=== PATIENT | female | born 2005 | race Two or more races ===

== ENCOUNTER 2025-04-06 09:43 | Emergency (ER) | payer MEDICAID, SELFPAY ==
--- NOTE | 2025-04-06 | XR_ITS ---
Exam: MRI knee without contrast, left Date and time of exam: April 06, 2025, 1558 hrs. Indications: Patient fell off of the knee 2 weeks ago followed by pain and swelling, unable to Weight on the Technique: Multiple axial, coronal, and sagittal sections on the knee have been obtained. T2-Weighted sagittal, fat-suppressed images, TR 3,500, TE 62, T2 weighted coronal fat-saturated images, TR 3,500, TE 62 Proton density sagittal sections, TR 1800, TE 31. T-1 weighted coronal images, TR 524, TE 13.0 Findings: Medial meniscus anterior horn intact. Medial meniscus, body intact.. Posterior horn medial meniscus intact.. Lateral meniscus anterior horn is intact Lateral meniscus, body is intact Posterior horn lateral meniscus is intact Anterior cruciate ligament complete tear Posterior cruciate ligament appears intact. Knee effusion is large. Quadriceps and patellar tendons appear intact. There is no evidence of tendinosis. Inflammatory change or fracture of Hoffa's fat pad is not seen. Medial patellar facet demonstrates no thinning. Lateral patellar facet cartilage demonstrates no thinning. Trochlear cartilage demonstrates no thinning. Marrow signal abnormal, bone contusion medial and lateral femoral condyle, posterior proximal medial lateral tibia. Medial collateral ligament appears intact. No meniscocapsular separation is seen. Illiotibial band and fibular collateral ligament are intact. Biceps femoris tendons appear intact. Medial femoral condylar articular cartilage demonstrates no thinning. Lateral femoral condylar articular cartilage demonstratesno thinning. Tibial plateau cartilage demonstrates no thinning. Impression: Complete tear anterior cruciate ligament
[2025-04-06 10:22] VITALS: BP 110/65; PULSE 55; RESP 16; TEMP 37.2; O2SAT 98; BMI 23.0
--- NOTE | 2025-04-06 14:57 | PC.NURSE ---
MRI CALLED TO ASK ABOUT IUD, PT GOT IT PLACED IN 2020, AND PER PT HAS HAD AN MRI WITH IT IN WITH NO PROBLEM
--- NOTE | 2025-04-06 16:36 | EDNOTE_ITS ---
<Statement entered by Courtney Davila MD - 04/16/25 11:09> As co-signing physician, I was present and available for consult prn. I concur with the plan and care as documented by the midlevel provider. Lower Extremity Injury RME/HPI General Chief Complaint: Extremity Injury, Lower Stated Complaint: TORN ACL Time Seen by Provider: 04/06/25 09:51 Arrival date/time: 04/06/25 09:43 20-year-old female with no significant medical problems presents to the emergency department today with complaints of left knee pain patient reports she was playing soccer on the of last month and she twisted her left knee when doing so she developed pain and swelling immediately patient reports since then she has been unable to walk without difficulty patient reports that she saw her medical management trainer at school and they feel that she has an ACL tear Limitations: no limitations Related Data Allergies Allergy/AdvReac Type Severity Reaction Status Date / Time No Known Allergies Allergy Verified 04/06/25 09:45 Review of Systems Review of Systems Systems Reviewed: All systems reviewed, normal except as documented Constitutional Constitutional: Reports system reviewed and no additional complaints, except as documented, Denies fever(s) and Denies headache(s) Eyes Eyes: Reports system reviewed and no additional complaints, except as documented and Denies blurry vision ENT Ears, Nose, Mouth, and Throat: Reports system reviewed and no additional complaints, except as documented, Denies headache(s), Denies nasal congestion and Denies nasal discharge Cardiovascular Cardiovascular: Reports system reviewed and no additional complaints, except as documented, Denies chest pain and Denies dyspnea Respiratory Respiratory: Reports system reviewed and no additional complaints, except as documented, Denies chest congestion, Denies cough and Denies dyspnea Gastrointestinal Gastrointestinal: Reports system reviewed and no additional complaints, except as documented and Denies abdominal pain Musculoskeletal Musculoskeletal: Reports system reviewed and no additional complaints, except as documented, Reports abnormal gait, Reports arthralgias, Denies deformity, Reports joint swelling, Denies numbness, Reports stiffness and Denies tingling Integumentary/Breasts Skin/Breast: Reports system reviewed and no additional complaints, except as documented and Denies rash Neurologic Neurologic: Reports system reviewed and no additional complaints, except as documented, Reports as per HPI, Reports abnormal gait, Denies headache(s), Denies numbness and Denies tingling Past Medical History Past Medical History NEUROLOGIC: Negative Neurological Disorders CARDIAC: Negative Cardiac Disorders RESPIRATORY: Negative Respiratory Disorders Social History SMOKING STATUS: Never smoker ED Exam General Limitations: Present no limitations General appearance: Present alert and in no apparent distress Head Head exam: Present atraumatic, normocephalic and normal inspection Eye Eye exam: Present normal appearance, PERRL and EOMI; Absent conjunctival injection ENT ENT exam: Present normal exam, normal oropharynx and mucous membranes moist Neck Neck exam: Present normal inspection, full ROM and trachea midline Chest Chest inspection: Present normal inspection and symmetric chest wall rise Respiratory Respiratory exam: Present normal lung sounds bilaterally Cardiovascular Cardiovascular exam: Present regular rate, normal rhythm and normal heart sounds Abdominal Exam Abdominal exam: Present soft and normal bowel sounds Extremities Exam Extremities exam: Present full ROM, tenderness, normal capillary refill and joint swelling; Absent pedal edema or calf tenderness Back Exam Back exam: Present normal inspection and full ROM Neurological Exam Neurological exam: Present alert, oriented X3 and CN II-XII intact Psychiatric Psychiatric exam: Present normal affect and normal mood Skin Skin exam: Present warm, dry, intact and normal color Course Quality Measures none Orders Category Date Time Status MRI Screening NOW Care 04/06/25 10:30 Active MR knee LT wo con Stat Exams 04/06/25 Completed Vital Signs Vital signs: Vital Signs Temperature 98.9 F 04/06/25 10:22 Pulse Rate 55 L 04/06/25 10:22 Respiratory Rate 16 04/06/25 10:22 Blood Pressure 110/65 04/06/25 10:22 Pulse Oximetry (%) 98 04/06/25 10:22 Oxygen Delivery Method Room Air 04/06/25 10:22 O2 saturation 98% room air within normal limits Extremity Injury, Lower MDM Narrative MDM Narrative:: 20-year-old female with no significant medical problems presents to the emerge ncy department today with complaints of left knee pain patient reports she was playing soccer on the of last month and she twisted her left knee when doing so she developed pain and swelling immediately patient reports since then she has been unable to walk without difficulty patient reports that she saw her medical management trainer at school and they feel that she has an ACL tear As patient is from out of town and is I am unable to get an MRI on an outpatient basis I would an MRI here patient has a complete ACL tear suspected Patient has a brace in place and she already has crutches Patient given a copy of her MRI report as well as a disk to bring to her PCP for referral to specialist for repair of her ACL Patient data External records reviewed:: None Clinical information provided by:: patient Social determinants that could affect healthcare access:: none Patient has the following chronic illnesses:: None How is presenting disease/condition affected by chronic disease/condition?: no chronic disease Evaluation data The following diagnostics were reviewed and interpreted by me:: radiology exam(s) Lab and/or radiology exams considered but not ordered:: Radiology obtained Interpretation Summary: Reviewed by me Medications / Prescriptions Medications or Prescriptions considered but not ordered:: Given no meds Medication administrations:: No meds Consultations Consultation(s) initiated? (list below): No Diagnosis Extremity Injury, Lower Differential Diagnosis: acute internal derangement of knee and other Most likely diagnosis given after review of the tests above:: ACL tear Admission Indicated Admission indicated?: not indicated Admission Request Was there a request for admission?: No Disposition Plan Disposition Plan: Discharge Discharge Attestation Discharge Attestation: The patient and all family members were given an opportunity to ask questions and understood the discharge instructions. Discharge instructions specifically effects, indications for sooner follow up or return to the emergency department, and the expected course of current diagnosis. Patient condition: Stable Discharge Plan Plan Patient Disposition: HOME (Self Care) Discharge Disposition comment: Stable Prescriptions/Referrals Referrals: No Primary/Family,Physician [Primary Care Provider] - In 1 week Problem List Clinical Impression: Complete tear of anterior cruciate ligament of left knee Patient/Caregiver Discharge Instructions Education Materials: ED Knee Sprain Additional Instructions: Please follow-up with PCP and or get a referral for orthopedist for repair of your ACL for worsening symptoms return immediately Print Language: Mongolian Stand Alone Forms: Tara Award Info., Patient Portal Info Letter PA/SCIENTIST/ENGINEER Supervising Physician PA/SCIENTIST/ENGINEER Supervising Physician: Dr. davila
== END 2025-04-06 18:01 | disposition home or self-care (01) ==
PROVIDERS: Emergency Provider Emergency Medicine
DX: S83.512A Sprain of anterior cruciate ligament of left knee, initial encounter (principal); X50.1XXA Overexertion from prolonged static or awkward postures, initial encounter
CPT/HCPCS: 73721; 99284